=== PATIENT | male | born 1960 | race Caucasian/White ===

== ENCOUNTER → 2017-11-06 | Outpatient (CLI) | payer BC ==
[~2017-11-06] MED LIST: ALLO100 PO; ASPI81CH PO; CEPH500 PO; CYCL10 PO; HYDACE10 PO; HYDACE5 PO; IBUP800 PO; JARDIANCE10 MG PO; Lisinopril2.5 MG; MELO7.5 PO; METF500C PO; NAPR550 PO; OXYACE5T PO; RXNAPNA550 PO; SIMV40 PO; ULORIC PO
[2017-11-07 14:31] LABS: Stool Occult Bld Immuno 1 Negative (NEGATIVE)
== END | disposition home or self-care (01) ==
LOC: LAB 07:30 → LAB SHORT 07:30 → LAB FUT 11-03 06:50
PROVIDERS: Physician Assistant Medical
DX: Z13.811 Encounter for screening for lower gastrointestinal disorder (principal); E11.9 Type 2 diabetes mellitus without complications; I10 Essential (primary) hypertension; E29.1 Testicular hypofunction; N40.0 Benign prostatic hyperplasia without lower urinary tract symptoms; N39.0 Urinary tract infection, site not specified; E78.2 Mixed hyperlipidemia; D64.9 Anemia, unspecified
CPT/HCPCS: G0328

== ENCOUNTER 2018-04-12 04:47 | Emergency (ER) | payer OTHER, BC ==
[~2018-04-12] VITALS: Ht 182.9 cm; Wt 122.5 kg
[~2018-04-12 04:47] MED LIST changes: -ALLO100 PO; -ASPI81CH PO; -JARDIANCE10 MG PO; -Lisinopril2.5 MG; -METF500C PO
[2018-04-12] MEDS ORDERED: JARDIANCE10 MG PO (05:59)
[2018-04-12] MEDS ORDERED: ALLO100 PO (05:59)
[2018-04-12] MEDS ORDERED: Lisinopril2.5 MG (05:59)
[2018-04-12] MEDS ORDERED: METF500C PO (05:59)
[2018-04-12] MEDS ORDERED: ASPI81CH PO (06:00)
== END 2018-04-12 06:16 | disposition home or self-care (01) ==
LOC: ER 04:47
DX: S83.91XA Sprain of unspecified site of right knee, initial encounter (principal); X50.9XXA Other and unspecified overexertion or strenuous movements or postures, initial encounter; Z88.2 Allergy status to sulfonamides; Z79.899 Other long term (current) drug therapy; Z79.891 Long term (current) use of opiate analgesic; Z87.891 Personal history of nicotine dependence
CPT/HCPCS: 73562-RT; 99283

== ENCOUNTER 2020-10-05 11:49 | Emergency (ER) | payer BC ==
[~2020-10-05] VITALS: Ht 180.3 cm; Wt 110.7 kg
[~2020-10-05 11:49] MED LIST changes: +ALLO300 PO; +ASPI81CH PO; +GABA300 PO; +JARDIANCE25 MG PO; +Lisinopril2.5 MG; +METF500 PO; +METF500C PO; +Monodox100 MG PO; +Norco 10-325 T1 EACH PO; +Prinivil10 MG PO
[2020-10-05 12:52] LABS: Source, Urine Clean Catch
[2020-10-05 12:54] LABS: Alanine Aminotransfer (ALT/SGP 136 U/L (12-78); Albumin, Blood 2.4 g/dL (3.4-5.0); Albumin/Globulin Ratio 0.5 (0.8-1.8); Alk Phos 971 U/L (50-136); Anion Gap 13 mmol/L (6-16); Aspartate Aminotrans (AST/SGOT 141 U/L (12-37); Bilirubin, Total 1.4 mg/dL (0.1-1.0); Blood Urea Nitrogen 15 mg/dL (8-24); Bun/Creatinine Ratio 24.9 (12.0-20.0); CO2, Blood 21 mmol/L (21-32); Calcium, Blood 10.1 mg/dL (8.5-10.1); Chloride, Blood 105 mmol/L (98-108); Globulin, Blood 5.2 g/dL (2.2-4.0); Glomerular Filtration Rate >60 (60-); Glucose, Blood 147 mg/dL (70-99); Potassium, Blood 4.2 mmol/L (3.5-5.5); Sodium, Blood 139 mmol/L (136-145); Total Protein, Blood 7.6 g/dL (6.4-8.2)
[2020-10-05 13:08] LABS: Appearance, Urine Clear (Clear); Bilirubin, Urine Neg (Neg); Blood, Urine 1+ (Neg); Color, Urine Yellow (P-Yellow); Glucose Qualitative, Urine 4+ (Neg); Ketones, Urine 2+ (Neg); Leukocyte Esterase, Urine Neg (Neg); Nitrite, Urine Neg (Neg); Protein, Urine 1+ (Neg); Specific Gravity, Urine 1.015 (1.003-1.022); Urobilinogen, Urine NORM (Normal)
[2020-10-05 13:34] LABS: Bacteria Rare /hpf; Red Blood Cells, Urine 0-2 /hpf (0-2); Squamous Epithelial Cells Few /hpf (Few); White Blood Cells, Urine 0-2 /hpf (0-5)
[2020-10-05 13:35] LABS: Granular Casts 0-2 /lpf (0); Hyaline Casts 0-2 /lpf (0-2)
[2020-10-05 14:19] LABS: BASOPHILS ABSOLUTE AUTO 0.03 K/mm3 (0.00-0.23); BASOPHILS PERCENT AUTO 0 % (0-2); EOSINOPHILS ABSOLUTE AUTO 0.03 K/mm3 (0.00-0.68); EOSINOPHILS PERCENT AUTO 0 % (0-6); Hematocrit 44.4 % (37.0-53.0); Hemoglobin 13.9 g/dL (13.5-17.5); IMMATURE GRAN ABSOLUTE AUTO 0.04 K/mm3 (0.00-0.10); IMMATURE GRAN PERCENT AUTO 1 % (0-1); LYMPHOCYTES ABSOLUTE AUTO 1.18 K/mm3 (0.84-5.20); LYMPHOCYTES PERCENT AUTO 13 % (21-46); MONOCYTES ABSOLUTE AUTO 1.15 K/mm3 (0.16-1.47); MONOCYTES PERCENT AUTO 13 % (4-13); Mean Corpuscular HGB 30.5 pg (26.0-34.0); Mean Corpuscular HGB Conc 31.3 g/dL (31.5-36.5); Mean Corpuscular Volume 97 fL (80-100); Mean Platelet Volume 11.7 fL (9.1-12.4); NEUTROPHILS ABSOLUTE AUTO 6.41 K/mm3 (1.96-9.15); NEUTROPHILS PERCENT AUTO 73 % (41-73); Platelet Count 325 K/mm3 (150-400); RDW Coefficient Variation 14.6 % (11.7-14.2); RDW Standard Deviation 52.4 fL (35.1-46.3); Red Blood Cell Count 4.56 M/mm3 (4.30-5.90); White Blood Cell Count 8.84 K/mm3 (4.00-11.30)
[2020-10-05] MEDS ORDERED: Zofran4 MG PO (15:27)
== END 2020-10-05 15:50 | disposition home or self-care (01) ==
LOC: ER 11:49
PROVIDERS: Physician Assistant
DX: C22.9 Malignant neoplasm of liver, not specified as primary or secondary (principal); Z79.84 Long term (current) use of oral hypoglycemic drugs; Z79.899 Other long term (current) drug therapy; Z87.891 Personal history of nicotine dependence
CPT/HCPCS: 36415; 74177; 80053; 81001; 83690; 85025; 99284-25; A9270; Q9967

== ENCOUNTER 2020-10-27 18:24 | Inpatient (IN) | payer BC, SELFPAY ==
[~2020-10-27] VITALS: Ht 172.7 cm; Wt 105.2 kg
[~2020-10-27 18:24] MED LIST changes: +Zofran4 MG PO
[2020-10-27 19:53] LABS: BASOPHILS ABSOLUTE AUTO 0.03 K/mm3 (0.00-0.23); BASOPHILS PERCENT AUTO 0 % (0-2); EOSINOPHILS ABSOLUTE AUTO 0.03 K/mm3 (0.00-0.68); EOSINOPHILS PERCENT AUTO 0 % (0-6); Hematocrit 42.3 % (37.0-53.0); Hemoglobin 13.4 g/dL (13.5-17.5); IMMATURE GRAN ABSOLUTE AUTO 0.08 K/mm3 (0.00-0.10); IMMATURE GRAN PERCENT AUTO 1 % (0-1); LYMPHOCYTES PERCENT AUTO 15 % (21-46); MONOCYTES ABSOLUTE AUTO 1.07 K/mm3 (0.16-1.47); MONOCYTES PERCENT AUTO 13 % (4-13); Mean Corpuscular HGB 33.1 pg (26.0-34.0); Mean Corpuscular HGB Conc 31.7 g/dL (31.5-36.5); Mean Corpuscular Volume 104 fL (80-100); Mean Platelet Volume 11.2 fL (9.1-12.4); NEUTROPHILS ABSOLUTE AUTO 5.78 K/mm3 (1.96-9.15); NEUTROPHILS PERCENT AUTO 70 % (41-73); NRBC ABSOLUTE 0.02 K/mm3 (0.00-0.02); NRBC Auto 0.2 /100 WBC (0.0-0.2); Platelet Count 250 K/mm3 (150-400); RDW Coefficient Variation 19.9 % (11.7-14.2); RDW Standard Deviation 73.9 fL (35.1-46.3); Red Blood Cell Count 4.05 M/mm3 (4.30-5.90); White Blood Cell Count 8.19 K/mm3 (4.00-11.30)
[2020-10-27 20:29] LABS: Source, Urine Clean Catch
[2020-10-27 20:32] LABS: Appearance, Urine Clear (Clear); Blood, Urine 1+ (Neg); Color, Urine Amber (P-Yellow); Glucose Qualitative, Urine Neg (Neg); Ketones, Urine 4+ (Neg); Leukocyte Esterase, Urine 1+ (Neg); Nitrite, Urine Neg (Neg); Protein, Urine 2+ (Neg); Specific Gravity, Urine 1.025 (1.003-1.022); Urobilinogen, Urine 2+ (Normal)
[2020-10-27 20:41] LABS: Bilirubin, Urine 2+ (Neg)
[2020-10-27 20:42] LABS: Amorphous Mod (0-Heavy); Bacteria Mod /hpf; Mucus Light (0-Heavy); Red Blood Cells, Urine 0-2 /hpf (0-2); Squamous Epithelial Cells Few /hpf (Few); White Blood Cells, Urine 0-2 /hpf (0-5)
[2020-10-27 20:48] LABS: Alanine Aminotransfer (ALT/SGP 132 U/L (12-78); Albumin, Blood 1.9 g/dL (3.4-5.0); Albumin/Globulin Ratio 0.4 (0.8-1.8); Alk Phos 1205 U/L (50-136); Anion Gap 19 mmol/L (6-16); Aspartate Aminotrans (AST/SGOT 220 U/L (12-37); Bilirubin, Total 9.4 mg/dL (0.1-1.0); Blood Urea Nitrogen 19 mg/dL (8-24); Bun/Creatinine Ratio 32.1 (12.0-20.0); CO2, Blood 13 mmol/L (21-32); Calcium, Blood 11.4 mg/dL (8.5-10.1); Chloride, Blood 92 mmol/L (98-108); Creatinine, Blood 0.59 mg/dL (0.60-1.20); Globulin, Blood 4.7 g/dL (2.2-4.0); Glomerular Filtration Rate >60 (60-); Glucose, Blood 91 mg/dL (70-99); Potassium, Blood 4.6 mmol/L (3.5-5.5); Sodium, Blood 124 mmol/L (136-145); Total Protein, Blood 6.6 g/dL (6.4-8.2)
[2020-10-28 02:10] LABS: CPK Creatine Kinase 139 U/L (39-308)
[2020-10-28 02:45] LABS: Alanine Aminotransfer (ALT/SGP 119 U/L (12-78); Albumin, Blood 1.7 g/dL (3.4-5.0); Albumin/Globulin Ratio 0.4 (0.8-1.8); Alk Phos 1100 U/L (50-136); Anion Gap 21 mmol/L (6-16); Aspartate Aminotrans (AST/SGOT 192 U/L (12-37); Bilirubin, Total 8.9 mg/dL (0.1-1.0); Blood Urea Nitrogen 17 mg/dL (8-24); Bun/Creatinine Ratio 33.9 (12.0-20.0); CO2, Blood 11 mmol/L (21-32); Calcium, Blood 10.1 mg/dL (8.5-10.1); Chloride, Blood 95 mmol/L (98-108); Creatine Kinase MB <1.0 ng/mL (0.0-3.6); Creatine Kinase MB Index Unable to Calculate (0.0-4.0); Globulin, Blood 4.2 g/dL (2.2-4.0); Glomerular Filtration Rate >60 (60-); Glucose, Blood 87 mg/dL (70-99); Potassium, Blood 4.6 mmol/L (3.5-5.5); Sodium, Blood 127 mmol/L (136-145); Total Protein, Blood 5.9 g/dL (6.4-8.2)
[2020-10-28] MEDS ORDERED: OXAYDO5 M1 PO (02:47)
--- NOTE | 2020-10-28 04:58 | NUR ---
ASSUMED PT CARE/END OF SHIFT SUMMARY PT ARRIVED ON UNIT FROM ED AT 0320. NOTED TO BE ALERT AND ORIENTED AND ABLE TO MAKE NEEDS KNOWN. VERY LETHARGIC AND WEAK. REQUIRED STANDBY ASSIST TO TRANSFER TO BED D/T UNSTEADY GAIT. PT STATES HE HOLDS ON TO STODDARD IN ORDER TO MAKE IT TO THE BATHROOM AT HOME; DENIES USE OF ANY AMBULATORY AIDS. PT APPEARS VERY JAUNDICE, WHICH IS ALSO NOTED TO SCLERA. UPON PALPATION OF ABDOMEN, RUQ IS THE MOST FIRM AND TENDER. REST OF ABDOMEN IS ALSO TENDER, BUT SOFT. ABDOMINAL HERNIA NOTED. PT VOIDED IN URINAL, DARK ORANGE IN COLOR. NS INFUSING AT 150MLS/HR. 20G TO RIGHT AC AND LEFT FOREARM. CALL LIGHT IS WITHIN REACH AND PT IS ABLE TO MAKE HIS NEEDS KNOWN. VSS, SEE FLOWSHEET. WILL CONTINUE TO MONITOR UNTIL REPORT IS HANDED OFF TO ONCOMING RN.
--- NOTE | 2020-10-28 08:30 | NUR ---
ASSUMED CARE REPORT FROM GARLAND NEGRETE AT 0700. PT RESTING IN BED. WAKES c VERBAL STIMULI. PLEASANT. COOPERATIVE c CARE. A&OX 4. PT C/O "FULLNESS" TO ABD, ABD DISTENDED, ROUND, TENDER THROUGHOUT, WORSE IN RUQ. PT REPORTS DIFFICULTIES EATING D/T FULLNESS. ABLE TO DRINK CHOCOLATE MILK AND ORANGE JUICE. CHEMBG 49 THIS AM, ORANGE JUICE PROVIDED. ABLE TO SHIFT HIPS AND MOVE INDEPENDENTLY IN BED. SKIN AND SCLERA JAUNDICE. WILL CONTINUE TO MONITOR.
--- NOTE | 2020-10-28 12:30 | NUR ---
SHIFT SUMMARY/TRANSFER TO MEDICAL ASSESSMENT REMAINS UNCHANGED. PT STATUS CHANGED TO MED s TELE. INCREASED APPETITE FOR LUNCH. DIETARY CONSULT ORDERED. REPEAT CHEMBG 110. VSS. REPORT TO ALEX NEGRETE. PT TRANSFERRED TO MEDICAL FLOOR. ALL BELONGINGS c PT.
--- NOTE | 2020-10-28 13:11 | NUR ---
PATIENT ARRIVES FROM ICU ABOUT 12:40 VIA W/C. NO TELE. ON R.A. LUNGS CLEAR UPPER, DIM LOWER. SPEAKS IN COMPLETE SENTENCES. ABD FEELS FIRM RUQ. BOWEL SOUNDS PRESENT. JAUNDICE IN COLOR. A&O. [facility] WAS SUPPOSE TO HAVE FIRST APPT WITH ONCOLOGY IN [place] TOMORROW. ADVISED THAT [facility] IS CONSULTED TO SEE HIM. PATIENT [facility] WOULD RATHER SEE SOMEONE HERE THAN [place] DUE TO LONG DRIVE. UMBILICAL HERNIA , [facility] WAS FIXED AT ONE TIME BUT CAME BACK. POOR APPETITE DUE TO INCREASE PRESSURE FROM ABD.BROWN SPOTTED DISCOLORATION BILATERAL LEGS. AMBULATORY WITH ONE PERSON STANDBY ASSIST. WCTM.
--- NOTE | 2020-10-28 13:39 | NUR ---
FAXED REQUEST FOR CURRENT MED LIST TO [facility]I CARROLL.
--- NOTE | 2020-10-28 16:48 | NUR ---
GIVEN MEDS PER . LACTIC ACID TO BE REDRAWN AT 1800.
[2020-10-28] MEDS ORDERED: GEMF600 PO (17:20)
[2020-10-28] MEDS ORDERED: TELM20 PO (17:21)
[2020-10-28 19:26] LABS: Alpha Feto Protein, Tumor Mkr 2.9 ng/mL (0.0-8.0); Carcinoembryonic Antigen 1.5 ng/mL (0.0-3.0)
[2020-10-28 20:21] LABS: Cancer Antigen 19-9 47591.5 U/mL (2.0-37.0)
[2020-10-29 03:12] LABS: BASOPHILS ABSOLUTE AUTO 0.04 K/mm3 (0.00-0.23); BASOPHILS PERCENT AUTO 1 % (0-2); EOSINOPHILS ABSOLUTE AUTO 0.03 K/mm3 (0.00-0.68); EOSINOPHILS PERCENT AUTO 0 % (0-6); Hematocrit 37.9 % (37.0-53.0); Hemoglobin 11.7 g/dL (13.5-17.5); IMMATURE GRAN ABSOLUTE AUTO 0.09 K/mm3 (0.00-0.10); IMMATURE GRAN PERCENT AUTO 1 % (0-1); LYMPHOCYTES ABSOLUTE AUTO 1.27 K/mm3 (0.84-5.20); LYMPHOCYTES PERCENT AUTO 16 % (21-46); MONOCYTES ABSOLUTE AUTO 1.08 K/mm3 (0.16-1.47); MONOCYTES PERCENT AUTO 14 % (4-13); Mean Corpuscular HGB Conc 30.9 g/dL (31.5-36.5); Mean Corpuscular Volume 107 fL (80-100); Mean Platelet Volume 10.8 fL (9.1-12.4); NEUTROPHILS ABSOLUTE AUTO 5.48 K/mm3 (1.96-9.15); NEUTROPHILS PERCENT AUTO 69 % (41-73); Platelet Count 229 K/mm3 (150-400); RDW Coefficient Variation 20.1 % (11.7-14.2); RDW Standard Deviation 76.8 fL (35.1-46.3); Red Blood Cell Count 3.55 M/mm3 (4.30-5.90); White Blood Cell Count 7.99 K/mm3 (4.00-11.30)
[2020-10-29 03:32] LABS: Alanine Aminotransfer (ALT/SGP 102 U/L (12-78); Albumin, Blood 1.5 g/dL (3.4-5.0); Albumin/Globulin Ratio 0.4 (0.8-1.8); Anion Gap 17 mmol/L (6-16); Aspartate Aminotrans (AST/SGOT 165 U/L (12-37); Bilirubin, Total 7.4 mg/dL (0.1-1.0); Blood Urea Nitrogen 13 mg/dL (8-24); Bun/Creatinine Ratio 22.3 (12.0-20.0); CO2, Blood 12 mmol/L (21-32); Chloride, Blood 102 mmol/L (98-108); Creatinine, Blood 0.58 mg/dL (0.60-1.20); Globulin, Blood 4.1 g/dL (2.2-4.0); Glomerular Filtration Rate >60 (60-); Glucose, Blood 79 mg/dL (70-99); Potassium, Blood 4.7 mmol/L (3.5-5.5); Sodium, Blood 131 mmol/L (136-145); Total Protein, Blood 5.6 g/dL (6.4-8.2)
[2020-10-29 03:57] LABS: Alk Phos 946 U/L (50-136)
--- NOTE | 2020-10-29 04:37 | NUR ---
SHIFT SUMMARY ADMITTED FOR HYPERCALCEMIA. RECENT DX OF LUNG CANCER. DNR CODE STATUS. PLAN IS FOR FAMILY, PALLIATIVE CARE, AND HOSPITALIST TO DISCUSS FUTURE PLAN OF CARE. DR MCGUIRE IS CONSULT FOR ONCOLOGY. NS IS INFUSING @ 150 ML/HR. HE IS JAUNDICED. BLOOD SUGARS ARE TESTED EVERY 4 HOURS, ORDERED. NO COVERAGE NEEDED AND NO HYPOGLYCEMIA NOTED THIS SHIFT. LACTIC ACID WAS 10.0 AND IS UNLIKELY TO DOWNTREND SIGNIFICANTLY I WAS TOLD IN REPORT.
--- NOTE | 2020-10-29 11:38 | NUR ---
AND STEP DAUGHTER ARRIVED. DR.SAIGEL JI.
--- NOTE | 2020-10-29 12:09 | NUR ---
HAVING CONFERENCE WITH ; PATIENT, STEPDAUGHTER AND . PALLIATIVE CARE, GIANCARLO HERE.
--- NOTE | 2020-10-29 13:19 | NUR ---
Pt resting in bed upon arrival. Family at bedside. Dr Salcido discussing results and concerns. Pt appears to have cancer with aidee. Dr Ta is consulted. Dr Salcido discusses next steps and poor prognosis. Pt's spouse tearful throughout the visit. Comic Artist Nichole offers emotional support for spouse Rula. Dr Salcido answers questions. Offered therapeutic listening for Pt and assessed Pt's understanding of next steps. Pt is agreeable with plan. Pt's daughter Joana also at bedside and V/U. Spoke with Bedside RN Mimi and discussed case. Plan for Palliative Care to F/U with Pt and family during Oncologist visit to assist with any questions after Dr Ta leaves. Palliative Care will remain available.
--- NOTE | 2020-10-29 15:08 | NUR ---
ALERT. ORIENTED. MEDICATED FOR PAIN WITH GOOD RESULTS. PATIENT NEEDS ASSISTANCE WITH MOVING RIGHT AFTER TAKING PAIN MEDS. NOT IMPULSIVE. WILL ASK FOR ASSISTANCE. PATIENT AND FAMILY WAITING FOR ONCOLOGY ARRIVAL. PATIENT COLOR LITTLE BETTER TODAY. URINE STILL BRIGHT ORANGE IN COLOR. IV X 1 PATENT. ABD FIRM AND APPEARS LITTLE LARGER THAN YESTERDAY. TM
--- NOTE | 2020-10-29 17:05 | NUR ---
TOOK OVER CARE OF PT AT 1630 PT AOX4 AND PLEASANT. PT HAS FAMILY AT BEDSIDE AND IS A ONE PERSON ASSIST. PT WATCHING TV AND IS WAITING TO SPEAK WITH ONCOLOGIST TODAY. CALL LIGHT IS WITHIN REACH. WILL CONTINUE TO MONITOR TILL SHIFT CHANGE.
--- NOTE | 2020-10-29 18:52 | NUR ---
Spiritual care note: Present with pt and family when physician explained metastisis and poor prognosis. , Sylvia, very anxious and tearful. She appeared to have trouble processing what physician was saying and said she was "in a panic." She complained that no one was telling her anything even though physician present and repeating dx and prognosis often. Sylvia respnded well to careful intake counselor and she became more calm. Dtr, Joana, appears to be a strong, capable support. Jay was quiet throughout, but said he understood what he was being told. Family now awaiting meeting with Dr. Ta for POC. Child Specialist services will remain available.
--- NOTE | 2020-10-29 18:53 | NUR ---
Received call from Bedside RN that Dr Ta has arrived. Arrived to room and provided support for Pt and family. Dr Ta discusses options including pursuing treatment or focusing on comfort. Dr Ta discusses treatment plan. Goal is for Pt to be well enough to received treatment including building his strength back. Placed order for Lactulose TID, first dose start now, per V/O from Dr Ta. Remained behind and answered questions. Listened to concerns. Daughter Joana and spouse gilbert report needing to speak with someone regarding caregiver support at home for Pt. Instructed Caremanager can help address concerns. Pt and family express appreciation of visit and report no other concerns at this time. Palliative Care will remain available.
[2020-10-30 05:01] LABS: BASOPHILS ABSOLUTE AUTO 0.03 K/mm3 (0.00-0.23); BASOPHILS PERCENT AUTO 0 % (0-2); EOSINOPHILS ABSOLUTE AUTO 0.02 K/mm3 (0.00-0.68); EOSINOPHILS PERCENT AUTO 0 % (0-6); Hematocrit 37.6 % (37.0-53.0); Hemoglobin 11.6 g/dL (13.5-17.5); IMMATURE GRAN ABSOLUTE AUTO 0.09 K/mm3 (0.00-0.10); IMMATURE GRAN PERCENT AUTO 1 % (0-1); LYMPHOCYTES ABSOLUTE AUTO 1.19 K/mm3 (0.84-5.20); LYMPHOCYTES PERCENT AUTO 12 % (21-46); MONOCYTES ABSOLUTE AUTO 1.13 K/mm3 (0.16-1.47); MONOCYTES PERCENT AUTO 11 % (4-13); Mean Corpuscular HGB 32.7 pg (26.0-34.0); Mean Corpuscular HGB Conc 30.9 g/dL (31.5-36.5); Mean Corpuscular Volume 106 fL (80-100); Mean Platelet Volume 11.3 fL (9.1-12.4); NEUTROPHILS PERCENT AUTO 76 % (41-73); NRBC ABSOLUTE 0.02 K/mm3 (0.00-0.02); NRBC Auto 0.2 /100 WBC (0.0-0.2); Platelet Count 205 K/mm3 (150-400); RDW Coefficient Variation 20.6 % (11.7-14.2); RDW Standard Deviation 78.2 fL (35.1-46.3); Red Blood Cell Count 3.55 M/mm3 (4.30-5.90); White Blood Cell Count 10.16 K/mm3 (4.00-11.30)
--- NOTE | 2020-10-30 05:11 | NUR ---
ACCOUNTS ADJUSTABLE CLERK SUMMARY A/O TO SELF AND FAMILY ONLY. PT UP TO BATHROOM WITH USE OF FWW. ATTEMPTED TO GET UP SEVERAL TIMES T/O THE NIGHT, BED ALARM ON. PT DOES NOT BELEIVE HE IS IN THE HOSPITAL, HOWEVER WAS EASY TO REDIRECT. MEDICATED FOR PAIN PER EMAR. DENIES SOB. VSS. NO ACUTE CHANGES AT THIS TIME. BED IN LOWEST POSITION WITH CALL LIGHT IN REACH. WILL CONTINUE TO MONITOR AND REPORT TO ONCOMING RN.
[2020-10-30 05:34] LABS: Alanine Aminotransfer (ALT/SGP 95 U/L (12-78); Albumin, Blood 1.7 g/dL (3.4-5.0); Albumin/Globulin Ratio 0.4 (0.8-1.8); Alk Phos 981 U/L (50-136); Aspartate Aminotrans (AST/SGOT 153 U/L (12-37); Blood Urea Nitrogen 15 mg/dL (8-24); Bun/Creatinine Ratio 28.5 (12.0-20.0); Calcium, Blood 10.5 mg/dL (8.5-10.1); Chloride, Blood 102 mmol/L (98-108); Creatinine, Blood 0.53 mg/dL (0.60-1.20); Globulin, Blood 3.9 g/dL (2.2-4.0); Glomerular Filtration Rate >60 (60-); Glucose, Blood 90 mg/dL (70-99); Potassium, Blood 4.6 mmol/L (3.5-5.5); Sodium, Blood 130 mmol/L (136-145); Total Protein, Blood 5.6 g/dL (6.4-8.2)
[2020-10-30 05:36] LABS: Anion Gap 22 mmol/L (6-16); CO2, Blood 6 mmol/L (21-32)
--- NOTE | 2020-10-30 05:54 | NUR ---
PHYSICIAN NOTIFIED REMEDIAL READING TEACHER PROVIDER NOTIFIED OF CRITICAL LOW CARBON DIOXIDE LEVEL OF 6. NO NEW ORDERS AT THIS TIME.
--- NOTE | 2020-10-30 16:03 | NUR ---
Family conference today with pt, pt's , step dtr Joana, Dr. Lock and PC RN. is tearful and clearly overwhelmed by her 's rapidly declining health. Joana is supportive of both her mother and Jay. Dr. Lock explained options for care going forward, continue with supportive care and hope for some recovery to occur to become stronger and seek cancer treatment vs. focusing on comfort and transitioning to comfort care. Discussion between Jay and his about what their goals are. Comfort and seeking more information are two of the goals Jay has. Another was Jay wanting to make sure his was going to be taken care of. Jay's states that she wants him to be comfortable even if if means he may pass away sooner. After some discussion, Jay has opted to transition to comfort care. Both his and Joana are supportive of this decision. Jay has a dtr who is driving from [place] to get here to see him, she will likely be here later this evening. Spoke with screener to put Deirdre's name on the visiting list so she is able to come visit him when she arrives. Comfort care orders placed per Dr. Lock's request. Will plan to leave bicarb gtt running for now per Dr. Lock. Spoke with Rylie in about Jay and his family's concerns re: paperwork and Jay's business. Rylie recommends that the family contact a check processing clerk for making sure all the paperwork is completed correctly. Updated Joana and Jay's . They verbalized understanding. Jay's states that she isn't able to complete paperwork, she is unable to understand it and is easily overwhelmed by it. She states Jay took care of her for more the 25 years. Her love for him is clearly evident. Emotional support given to Jay and his family. Will allow the family some time to be together. They will contact nursing if they need anything. PC to continue to follow.
--- NOTE | 2020-10-30 16:43 | NUR ---
PT CHANGED TO COMFORT CARE. PT IN ROOM. PT ASLEEP, WOKE MOMENTARILY WHEN SPEAKING WITH . STATED SHE DOES NOT NEED ANYTHING AT THIS TIME.
--- NOTE | 2020-10-30 18:46 | NUR ---
SHIFT SUMMARY PT ALERT AND HAS HAD SOME CONFUSION DURING THE DAY BUT KNOWS NAME AND . PT ABLE TO MAKE NEEDS KNOWN. PT DOES TRY TO GET OUT OF BED W/O ASSISTANCE AT TIMES. PT CHANGED TO COMFORT CARE DURING SHIFT. FAMILY HAS BEEN WITH PT FOR MOST OF THE AFTERNOON. PT COMPLAINED OF PAIN THIS EVENING AND MEDICATED PER EMAR. PT AMBULATES TO BATHROOM W/ 1 PERSON ASSISTANCE AND FWW. PT CURENTLY TRYING TO SLEEP. DAUGHTER IS IN ROOM. JUST LEFT TO GET SOME SLEEP.
--- NOTE | 2020-10-30 23:18 | NUR ---
COMFORT CARE ASSESS PT UP TO VOID AT START OF SHIFT. AMB W/ SBA TO BATHROOM AND BACK. SLEEPING SHORTLY AFTER AND REMAINED ASLEEP UNTIL 2149, PT WOKE UP CONFUSED, SOMEWHAT ANXIOUS AND STATES PAINFUL WHEN ASKED. GOWN CHANGED DUE TO DIAPHORESIS. ADMINISTERED ROUTINE OXYCONTIN AND ASSISTED PT TO A COMFORTABLE POSITION. REASSESSED AT 2229, PT ASLEEP, RESPS REG, NON-LABORED.
--- NOTE | 2020-10-31 04:06 | NUR ---
PT WAKING UP, APPEARS RESTLESS. UNABLE TO COMMUNICATE NEEDS. SAYING, "I NEED PICKLE" AND "MOVE THE CHAIR". AUDIBLE RESP CRACKLES. ROXANOL AND ATROPINE GIVEN PER ORDERS. PT ASSISTED TO USE URINAL IN A STANDING POSITION W/ 2 MAX ASSIST, GAIT BELT, FWW. PT VERY SLOW AND CONFUSED W/ MOVEMENT, RESISTING THE PROCESS ALONG THE WAY. PT WAS ABLE TO VOID W/ MUCH CUEING. ASSISTED BACK TO BED. BED ALARM ON.
--- NOTE | 2020-10-31 05:19 | NUR ---
SHIFT SUMMARY: COMFORT CARE. PT SLEPT WELL MOST OF THE NIGHT, SPEAKING CLEARLY, BUT CONFUSED AND COMMENTS NONSENSICAL. BECOMES AGITATED W/ STAFF ASSIST, SAYING "JUST STOP" WHILE AT THE SAME TIME ASKING FOR HELP DOING WHAT HE IS SAYING TO STOP DOING. JAUNDICED APPEARING. PT CURRENTLY RESTING QUIETLY W/ EYES CLOSED. RESPS NON-LABORED AND EVEN. APPEARS COMFORTABLE. BED LOW, ALARM ON, SIDE RAILS UP X 3.
--- NOTE | 2020-10-31 10:23 | NUR ---
Family Updated called and requested update on patient's condition this morning. Provided update. Patient has been sleeping and had one incontinence episode. Did not provide additional update because interrupted and requested staff to inform /daughters if patient is nearing . does not want memories of patient's being a sad one and only wants to retain happy memories therefore does not want to be present at time of . Will communicate with staff regarding family's request.
--- NOTE | 2020-10-31 17:01 | NUR ---
Shift Summary Obtunded this shift. Resists brief changes and repositioning. Medicated for pain x 1, wet l/s and rattles x 4-5. Family visited x 1 briefly. Per report, incontinence is new for patient. Bedrest. No acute changes since assumption of care. WCTM.
--- NOTE | 2020-10-31 17:06 | NUR ---
DC NA HCO3 Received T.O. from Dr. Salcido to D/C sodium bicarb IV infusion. Patient has wet l/s and rattles, and also edematous. Order updated.
--- NOTE | 2020-11-01 01:03 | NUR ---
COMFORT CARE: FAMILY AT BEDSIDE. AT THE BEGINNING OF SHIFT, PT WOKE UP W/ TURNS AND CARES. BUT QUICKLY FELL BACK ASLEEP. PT IS NO LONGER WAKING UP W/ TURNS AND CARES. APPEARS COMFORTABLE, NO SIGNS OF ANXIETY. BREATHING IS REGULAR AND NON-LABORED. RESPS SOUND WET, ATROPINE GIVEN PRN, SCOPALAMINE PATCH PLACED. ORAL SUCTION IN PLACE. ORAL CARES COMPLETED DURING ROUNDS.
--- NOTE | 2020-11-01 02:10 | NUR ---
comfort care sleeping, resps regular, non-labored, appears comfortable, roxanol given per family request for possible pain, pt is not responsive to stimuli, eyes remain closed. mottling present on knees, hands, arms. atropine given for resp secretions. family at pt bedside.
--- NOTE | 2020-11-01 02:22 | NUR ---
COMFORT CARE: PT NOTED TO BE WITHOUT A PULSE OR RESPIRATIONS AT 0212. FAMILY AT BEDSIDE. CALL PLACED TO HOSPITALIST, DR. HANLEY AT 0224.
== END 2020-11-01 02:12 | DRG 640 ==
LOC: ER 18:24 → ICUE 10-28 02:20 → ERHOLD 10-28 02:20 → ICUE 10-28 03:15 → MEDS 10-28 12:49
PROVIDERS: Emergency Medicine; Internal Medicine Hematology & Oncology; Student in an Organized Health Care Education/Training Program; ADMIT Internal Medicine
PROC: 3E0234Z Introduction of Serum, Toxoid and Vaccine into Muscle, Percutaneous Approach (ICD-10-PCS; principal; 2020-10-28)
DX: E83.52 Hypercalcemia (principal); K72.00 Acute and subacute hepatic failure without coma; E87.1 Hypo-osmolality and hyponatremia; E87.2 Acidosis; C78.7 Secondary malignant neoplasm of liver and intrahepatic bile duct; C78.01 Secondary malignant neoplasm of right lung; Z66 Do not resuscitate; Z51.5 Encounter for palliative care; Z23 Encounter for immunization; E86.0 Dehydration; E16.2 Hypoglycemia, unspecified; M10.9 Gout, unspecified; Z87.891 Personal history of nicotine dependence; Z79.1 Long term (current) use of non-steroidal anti-inflammatories (NSAID); Z79.84 Long term (current) use of oral hypoglycemic drugs
CPT/HCPCS: 36415; 70470; 71260; 74177; 80053; 81001; 82105; 82140; 82378; 82550; 82553; 82947; 83605; 83690; 83970; 85025; 86301; 87040; 87086; 93005; 93010; 94660; 97116; 97162; 97165; 97530; 97535; 99285-25; A9270; J0696; J1170; J2405; J3010; J7030; J7120; Q2038; Q9967